=== PATIENT | male | born 1970 | race Caucasian/White ===

== ENCOUNTER 2017-07-25 13:26 | Inpatient (IN) ==
[2017-07-25] MEDS ORDERED: hydrALAZINE 20 MG/1 ML VIAL IV STA (15:05)
--- NOTE | 2017-07-25 15:07 | Emergency Department Note ---
Tomas Espinal Manpreet, am scribing for, and in the presence of, Jayy Galo MD 14:49. Iraj Espinal Charles R, MD, personally performed the services described in this documentation, ascribed by Garett Marin in my presence, and it is both accurate and complete 507 . 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 Denies CP or SOB. EMS reports patient was confused upon their arrival, but is AOX4 now. 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 Pt denies any CP or SOB and was confused upon EMS arrival but is currently back to his baseline state. Pt states he felt "woozy" before the syncopal episode and does not recall much. Pt states his HTN is usually lower than the observed on the monitor in the room. Pt also states he has not taken his HTN medications, lisinopril, in weeks. Pt is originally from [place] and has been working in the area thus unable to get a refill for his medications. Pt denies any CP, DIETZ, SOB, fever, or chills. Pt reports of smoking cigarettes and drinks EtOH intermittently. No other pains/ complaints reported to the ED. 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) Consistency: constant Severity: mild, moderate Severity scale (1-10): 2 Allergies/Adverse Reactions: Allergies Allergy/AdvReac Type Severity Reaction Status Date / Time Penicillins Allergy Unknown/Unable Verified 07/25/17 13:37 to obtain Home Medications: Home Medications Medication Instructions Recorded Confirmed Type Lisinopril/Hydrochlorothiazide 2 each PO DAILY 07/25/17 07/25/17 History [Lisinopril-Hctz 20-12.5 mg Tab] Review of System - Review of System 12 point system: reviewed and no additional remarkable complaints except as stated - Review of System Constitutional: Absent: chills, diaphoresis, fever Respiratory: Absent: cough, respiratory distress Cardiovascular: Present: syncope. Absent: chest pain Gastrointestinal: Absent: abdominal pain, nausea, vomiting, diarrhea Genitourinary male: Absent: dysuria Musculoskeletal: Absent: back pain Neurological: Absent: headache, weakness, numbness, paresthesias Medical,Surgical,& Family Hx - Medical History Cardio: History of: Hypertension - Social History Smoking Status: Current every day smoker Frequency of Alcohol Use: Frequently Type of Drug Use: None Exam Vital Signs: Vital Signs Temperature 98.8 F 07/25/17 13:33 Pulse Rate 104 H 07/25/17 13:33 Respiratory Rate 16 07/25/17 13:33 Blood Pressure 169/110 07/25/17 13:33 O2 Sat by Pulse Oximetry 98 07/25/17 13:33 - General General appearance: alert, in no apparent distress - Head Head exam: Present: atraumatic, normocephalic, normal inspection - Eye Eye exam: Present: normal appearance, PERRL, EOMI - ENT ENT exam: Present: normal exam, normal oropharynx, mucous membranes moist, TM's normal bilaterally - Neck Neck exam: Present: normal inspection, full ROM, trachea midline. Absent: tenderness - Chest Chest inspection: Present: normal inspection, symmetric chest wall rise. Absent : tenderness - Respiratory Respiratory exam: Present: normal lung sounds bilaterally. Absent: respiratory distress - Cardiovascular Cardiovascular exam: Present: regular rate, normal rhythm, normal heart sounds. Absent: murmur, rubs, gallop - Abdominal Exam Abdominal exam: Present: soft, normal bowel sounds. Absent: distention, tenderness - Extremities Exam Extremities exam: Present: normal inspection, full ROM - Back Exam Back exam: Present: normal inspection, full ROM - Neurological Exam Neurological exam: Present: alert, oriented X3, CN II-XII intact, reflexes normal - Psychiatric Psychiatric exam: Present: normal affect, normal mood - Skin Skin exam: Present: warm, dry, intact, normal color. Absent: pallor Course - Consultations Consultation #1: Hospitalist will admit patient Time: 16:48 Results - Labs CBC & BMP: 07/25/17 15:38 07/25/17 15:38 Lab Results: I have reviewed the patients labs Labs: Laboratory Tests 07/25/17 15:38 WBC 12.4 H RBC 4.80 Hgb 15.7 Hct 44.6 MCV 92.9 MCH 33 MCHC 35.2 RDW 12.4 Plt Count 219 MPV 10.5 Neut % (Auto) 83.1 H Lymph % (Auto) 11.3 L [place] % (Auto) 4.2 Eos % (Auto) 0.4 Baso % (Auto) 0.5 Neut # (Auto) 10.3 H Lymph # (Auto) 1.4 [place] # (Auto) 0.5 Eos # (Auto) 0.1 Baso # (Auto) 0.1 Immature Gran % 0.5 Nucleated RBC % 0.0 Immature Gran # 0.06 Nucleated RBCs # 0.00 Immature Plt Fraction 0.0 Laboratory Tests 07/25/17 15:38 D-Dimer, Quantitative <= 0.5 Laboratory Tests 07/25/17 16:09 Urine Color Yellow Urine Appearance Clear Urine pH 5.0 Ur Specific [place] 1.009 Urine Protein 30 Urine Glucose (UA) Negative Urine Ketones 5 Urine Blood Small Urine Nitrate Negative Urine Bilirubin Negative Urine Urobilinogen < 2.0 H Urine Leukocytes Negative Urine RBC 2 Ur Squamous Epith Cells Occasional Hyaline Casts 1 Urine Mucus Occasional Ur Culture Indicated? Not indicated Laboratory Tests 07/25/17 15:38 Sodium 139 Potassium 3.6 Chloride 107 Carbon Dioxide 26 Anion Gap 9.6 BUN 8 Creatinine 0.90 GFR Calculation 112 BUN/Creatinine Ratio 8.00 Glucose 79 Calculated Osmolality 273.5 Calcium 8.6 Magnesium 2.1 Total Bilirubin < 0.39 AST 30 ALT 36 Alkaline Phosphatase 79 Troponin I 0.020 Total Protein 7.5 Albumin 3.6 Globulin 3.9 H Albumin/Globulin Ratio 0.9 L Serum Alcohol < 15 L Laboratory Tests 07/25/17 16:09 Urine Opiates Screen Negative Ur Barbiturates Screen Negative Ur Phencyclidine Scrn Negative U Amphetamine/Methamph Negative U Benzodiazepines Scrn Negative U Cocaine Metab Screen Negative U Cannabinoids Screen Negative - Diagnostic Findings Procedure: Chest x-ray: report reviewed by me ("CXR: No abnormality is seen."), CT: report reviewed by me ("CT Head/brain w/o con: No acute intracranial abnormality is seen. Paranasal sinus disease.") Critical Care Time Critical Care Time: Yes Total Critical Care Time: 60 Disposition Clinical Impression: Syncope and collapse, Malignant hypertension, Tobacco abuse Case discussed with: patient Disposition: Still a Patient Condition: Guarded Time of Disposition: 16:49
--- NOTE | 2017-07-25 15:28 | CT Report ---
CT of the head without contrast. Indication: Syncope. The ventricles are normal in size and configuration. There is no mass effect, midline shift, or area of hemorrhage. No ischemic lesions are seen. The calvarium is intact. There is mucosal thickening present within the ethmoid sinuses. Impression: No acute intracranial abnormality is seen. Paranasal sinus disease. The CT exam was performed using one or more of the following dose reduction techniques: Automated exposure control, adjustment of the mA and/or kV according to patient size, or use of iterative reconstruction technique. PROCEDURE INTERPRETED AT [facility] DEPARTMENT OF RADIOLOGY Final Report Signed by: Dr. Jessica Rm
[2017-07-25] MEDS ORDERED: hydrALAZINE 20 MG/1 ML VIAL ONE ×2 (15:34→16:19)
--- NOTE | 2017-07-25 15:34 | XRay Report ---
Single view the chest. Indication: Shortness of breath. The heart and mediastinal contours are unremarkable. The pulmonary vasculature is normal. There is no consolidation, pneumothorax, or pleural effusion. The osseous structures are unremarkable. Impression: No abnormality is seen. PROCEDURE INTERPRETED AT [facility] DEPARTMENT OF RADIOLOGY Final Report Signed by: Dr. Jessica Rm
--- NOTE | 2017-07-25 15:45 | Order Completion Report ---
See report scanned to EMR
[2017-07-25 15:56] LABS: Basophils # 0.1 10*3/uL (0.0-0.2); Basophils % 0.5 % (0.0-0.8); Eosinophils # 0.1 10*3/uL (0.0-0.87); Eosinophils % 0.4 % (0.00-10.9); Hematocrit 44.6 VOL% (42.0-52.0); Hemoglobin 15.7 GM/DL (14.0-18.0); Immature Granulocytes % 0.5 %; Immature Granulocytes Absolute 0.06 #; Lymphocytes # 1.4 10*3/uL (1.4-4.0); Lymphocytes % 11.3 % (21.2-54.2); Mean Corpuscular HGB Conc 35.2 GM/DL (32-36); Mean Corpuscular Hemoglobin 33 PG (27-34); Mean Corpuscular Volume 92.9 FL (87-102); Mean Platelet Volume 10.5 FL (9.6-12.0); Monocytes # 0.5 10*3/uL (0.11-0.8); Monocytes % 4.2 % (1.7-12.7); Neutrophils # 10.3 10*3/uL (1.4-7.4); Neutrophils % 83.1 % (38.7-73.9); Platelet Count 219 T/CUMM (130-400); Red Cell Distribution Width 12.4 % (9.3-17.3); White Blood Count 12.4 T/CUMM (4-12)
[2017-07-25 16:23] LABS: Apearance,Urine CLEAR (Clear); Bilirubin,Urine Negative (Negative); Blood, Urine Small mg/dL (Negative); Glucose,Urine (UA) Negative (Negative); Hyaline Casts,Urine 1 /LPF (0-3); Ketones,Urine 5 mg/dL (Negative); Mucus,Urine Occasional /LPF (Occasional); Nitrite,Urine Negative (Negative); Protein,Urine 30 MG/DL; RBC,Urine 2 /HPF (0-4); Squamous Epithelial Cell,Urine Occasional /HPF (0-10); Urine Color Yellow (Yellow); Urine Specific Gravity 1.009 (1.001-1.035); Urine Urobilinogen < 2.0 EU/DL (0.2-1.0)
[2017-07-25 16:28] LABS: Alanine Aminotransferase 36 U/L (16-61); Albumin 3.6 G/DL (3.4-5.0); Alkaline Phosphatase 79 U/L (45-117); Aspartate Amino Transferase 30 U/L (0-37); Bilirubin,Total < 0.39 MG/DL (0.2-1.0); Blood Urea Nitrogen 8 MG/DL (7-18); Calcium 8.6 MG/DL (8.5-10.1); Glucose 79 MG/DL (74-106); Magnesium 2.1 MG/DL (1.8-2.4); Osmolality,Calculated 273.5 MOS/KG (273-304); Potassium 3.6 MMOL/L (3.5-5.1); Sodium 139 MMOL/L (136-145); Total Protein 7.5 G/DL (6.4-8.3)
[2017-07-25 16:33] LABS: Barbiturates Screen,Urine Negative (Negative); Benzodiazepines Screen,Urine Negative (Negative); Cannabinoid Screen,Urine Negative (Negative); Opiate Screen,Urine Negative (Negative); Phencyclidine Screen,Urine Negative (Negative)
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
[2017-07-25] MEDS ORDERED: ACETAMINOPHEN 325 MG TABLET PO PRN (18:11)
[2017-07-25] MEDS ORDERED: ONDANSETRON 4 MG/2 ML VIAL IV PRN (18:11)
[2017-07-25] MEDS ORDERED: hydrALAZINE 20 MG/1 ML VIAL IV PRN (18:30)
[2017-07-25] MEDS: SODIUM CHLORIDE 0.9% 1,000 ML IV SCH (20:56)
[2017-07-25] MEDS: ENOXAPARIN 40 MG/0.4 ML SYRINGE SUBCUT SCH (20:56)
[2017-07-26] MEDS: SODIUM CHLORIDE 0.9% 1,000 ML IV SCH ×4 (02:43→17:46)
[2017-07-26 05:35] LABS: Basophils # 0.1 10*3/uL (0.0-0.2); Basophils % 1.1 % (0.0-0.8); Eosinophils # 0.2 10*3/uL (0.0-0.87); Eosinophils % 2.6 % (0.00-10.9); Hematocrit 44.8 VOL% (42.0-52.0); Hemoglobin 15.6 GM/DL (14.0-18.0); Immature Granulocytes % 0.5 %; Immature Granulocytes Absolute 0.04 #; Lymphocytes # 1.7 10*3/uL (1.4-4.0); Lymphocytes % 20.6 % (21.2-54.2); Mean Corpuscular HGB Conc 34.8 GM/DL (32-36); Mean Corpuscular Hemoglobin 33 PG (27-34); Mean Corpuscular Volume 93.3 FL (87-102); Mean Platelet Volume 10.9 FL (9.6-12.0); Monocytes # 0.6 10*3/uL (0.11-0.8); Monocytes % 7.2 % (1.7-12.7); Neutrophils # 5.5 10*3/uL (1.4-7.4); Platelet Count 230 T/CUMM (130-400); Red Cell Distribution Width 12.5 % (9.3-17.3); White Blood Count 8.1 T/CUMM (4-12)
[2017-07-26 06:22] LABS: Calcium 8.5 MG/DL (8.5-10.1); Magnesium 2.2 MG/DL (1.8-2.4); Potassium 3.5 MMOL/L (3.5-5.1); Risk Ratio 2.9; Thyroid Stimulating Hormone 1.49 uIU/ml (0.358-3.74); VLDL CHOLESTEROL 14.2 MG/DL
[2017-07-26] MEDS: LISINOPRIL/HCTZ 20-12.5 MG TABLET PO SCH (08:42)
[2017-07-26] MEDS: PANTOPRAZOLE 40 MG TABLET PO SCH (08:43)
[2017-07-26 09:17] LABS: CKMB % 0.9 %
[2017-07-26 09:22] LABS: Troponin I Only 0.099 NG/ML (0.00-0.045)
[2017-07-26] MEDS ORDERED: amLODIPine 5 MG TABLET PO SCH (10:00)
--- NOTE | 2017-07-26 10:30 | Hospitalist Progress Note ---
Assessment and Plan (1) Hypertension Status: Acute Assessment and plan: His blood pressure today is 165/116. He was restarted yesterday on lisinopril 40 mg p.o. daily and hydrochlorothiazide 12.5 mg p.o. daily. I have begun him on amlodipine 5 mg p.o. daily today. Current Visit: Yes Qualifiers: Hypertension type: essential hypertension Qualified Code(s): I10 - Essential (primary) hypertension (2) Elevated troponin Status: Acute Assessment and plan: He has no known history of coronary artery disease. He has not experienced chest pain. In addition to his elevated troponin, his CPK and B is elevated to 16.5 and CPK to 1865. Cardiology has been consulted. Current Visit: Yes (3) Syncope and collapse Status: Acute Assessment and plan: He has no previously known history of loss of consciousness. As noted above, his troponin and CPK MB are elevated suggestive of acute coronary syndrome. Current Visit: Yes Hospitalist: Subjective Interval history: Mr. Tyler was admitted to the hospital last night after having experienced an episode of loss of consciousness. He experienced no chest pain, shortness of breath, or palpitations. He has a previously known history of hypertension but had not taken any medications for at least one month because he had been traveling and unable to renew his prescriptions. He has done well since admission to the hospital he has been restarted on antihypertensive medications. Cardiology has been consulted. Laboratory testing has demonstrated elevation of his serum troponins to 0.098, 0.135, and 0.099. Exam - Constitutional Vitals: Period Temp Pulse Resp BP Sys/Lynch Pulse Ox Last 24 Hr 97.3 F-99 F 75-107 16-20 152-189/92-116 96-100 General appearance: no acute distress - Head Head exam: Present: normal inspection - Neck Neck exam: Present: normal inspection - Respiratory Respiratory exam: Present: clear to auscultation bilaterally - Cardiovascular Cardiovascular exam: Present: regular rate and rhythm - GI/Abdominal GI/Abdominal exam: Present: normal bowel sounds, soft - Extremities Exam Extremities exam: Present: normal inspection - Skin Skin exam: Present: normal color, warm, intact Results - Labs CBC & BMP: 07/26/17 04:18 07/26/17 04:18
--- NOTE | 2017-07-26 10:45 | Cardiology Consult Note ---
<Chaya Gallegos E - Last Filed: 07/26/17 10:48> Assessment and Plan - Time spent with patient Time spent with patient: Greater than 30 minutes (Due to assessment, plan, documentation, and medication review.) (1) Syncope and collapse Status: Acute Assessment and plan: See plan of care listed below. Current Visit: Yes (2) Hypertension Status: Chronic Assessment and plan: See plan of care listed below. Current Visit: Yes Qualifiers: Hypertension type: essential hypertension Qualified Code(s): I10 - Essential (primary) hypertension (3) Tobacco abuse Status: Chronic Assessment and plan: See plan of care listed below. Current Visit: Yes (4) Noncompliance Status: Chronic Assessment and plan: See plan of care listed below. 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 Lyons PCP: none, patient is traveling [place] Mr. Tyler is a 47 y/o WM who has risk factors significant for: hypertension, tobacco abuse, overweight. He smokes approximately 10 cigarettes daily and has been smoking for many years. He drinks 6-7 16-ounce cans of beer several times per week and has an occasional glass of bourbon. 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 He states his last PCP was in [place] but he has not been there in 6-7 years. 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 He is currently based out of [place] but is staying with friends here at the interim. Mr. Tyler was brought to the emergency room via EMS yesterday evening after a syncopal episode. He tells me that he was helping the elderly female he and friends are staying with clean out her garage when after several hours he began to "feel funny." He thought that he needed to eat something and went inside. He was heating food up in the microwave and had fixed himself a glass of tea when he reports feeling shaky and queasy. He states the next thing he remembers is embroidery worker helping him up off of the floor. He denies loss of bowel or bladder function but does report discovering that his tongue on both sides upon arrival to the hospital. He is unsure exactly how long he was unconscious. His blood pressures on arrival were 169/100 and 189/98. He states he has been out of his blood pressure medication for over 30 days. He tells me that he is usually able to tell when his blood pressure is elevated as his face starts feeling "tight." He reports having that feeling 2-3 times during the last month. The last time he checked his blood pressure it was 113/91. He denies resting or exertional chest pain, heaviness, or tightness but states that he does have some dyspnea on exertion after climbing approximately 530 steel steps for work. Upon arrival, his CT of the head was unremarkable. HIs potassium is 3.5, magnesium 2.2, H&H 15.6 and 44.8. Sodium 143. Creatinine 0.9 with GFR 114. Troponin initially 0.020 with repeats 0.098, 0.135, and 0.099. CKMB 16.5 with CPK 1865. Lipid profile reveals triglycerides 71, cholesterol 197, LDL 121, and HDL 68. EKG shows sinus rhythm with LAD, late transition, and ST-T abnormality. IMPRESSION/PLAN: - SYNCOPE AND COLLAPSE: Echocardiogram and carotid dopplers are pending. Prolactin level is normal but CPK is 1865. Low suspicion for cardiac dysrhythmia but may require further evaluation with nuclear stress testing. Will further discuss with Dr. Lyons and await additional recommendations. - HYPERTENSION: Continue home medications. Will monitor and adjust accordingly. - TOBACCO ABUSE: Chronic. Patient not motivated to quit. Greater than 5 minutes was spent discussing the need for tobacco cessation. - NONCOMPLIANCE: Patient reports he gets his medicines filled wherever he can whenever he can. He has no PCP and has been out of his BP meds >30 days. CC: Jose Walters - Home Medications and Allergies Home Medications: Home Medications Medication Instructions Recorded Confirmed Type Lisinopril/Hydrochlorothiazide 2 each PO DAILY 07/25/17 07/25/17 History [Lisinopril-Hctz 20-12.5 mg Tab] Allergies/Adverse Reactions: Allergies Allergy/AdvReac Type Severity Reaction Status Date / Time Penicillins Allergy Unknown/Unable Verified 07/25/17 13:37 to obtain Review of systems: - Constitutional: Present: As per HPI. Absent: anorexia, chills, daytime sleepiness, excessive sweating, fever(s), frequent falls, headache(s), increased appetite, lethargy, malaise, night sweats, stops breathing during sleep, weakness, weight gain, weight loss, fatigue. - EENT Eyes: Present: As per HPI. Absent: blurry vision, diplopia, loss of vision Ears: Present: As per HPI. Absent: decreased hearing, ear discharge, ear pain Nose, mouth and throat: Present: As per HPI. Absent: dysphagia, epistaxis, headache(s), hoarseness, lip swelling, nasal congestion, neck mass, neck pain, sinus pressure, sore throat, throat swelling, tongue swelling, vertigo - Cardiovascular: Present: lightheadedness, as per HPI. Absent: chest pain at rest, chest pain with activity, dyspnea, edema, claudication, diaphoresis, radiating jaw, neck or arm pain, orthopnea, palpitations, PND - Respiratory: Present: cough, as per HPI. Absent: dyspnea, hemoptysis, wheezing, snoring, pain on inspiration - Gastrointestinal: Present: nausea, As per HPI. Absent: abdominal pain, bloating, change in bowel habits, constipation, diarrhea, heartburn, hematemesis , hematochezia, loose stools, melena, vomiting - Genitourinary: Present: As per HPI. Absent: difficulty urinating, dysuria, flank pain, hematuria, nocturia, urinary frequency, urinary incontinence - Musculoskeletal: Present: As per HPI. Absent: arthralgias, back pain, joint swelling, limited range of motion, muscle cramps, muscle weakness, myalgias - Neurological: Present: syncope, As per HPI. Absent: abnormal gait, abnormal speech, behavioral changes, confusion, convulsions, disequilibrium, dizziness, focal weakness, frequent falls, headache(s), memory loss, numbness, paresthesias , radicular pain, tremor(s) - Psychiatric: Present: As per HPI. Absent: anxiety, confusion, depression, panic attacks - Endocrine: Present: As per HPI. Absent: cold intolerance, fatigue, heat intolerance, polydipsia, polyphagia - Hematologic/Lymphatic: Present: As per HPI. Absent: easy bleeding, easy bruising, lymphadenopathy Medical,Surgical,& Family Hx - Medical History Cardio: History of: Hypertension Psychological: History of: Anxiety Disorders, Behavior Problems Musculoskeletal: History of: Herniated Disk No history of: Amputation - Surgical History Cardiac Surgeries: Patient Denies: Cardiac Catheterization Thoracic Surgeries: Patient denies;: Lobectomy Neurologic Surgeries: Patient denies: Neurologic Surgery HEENT Surgeries: Patient denies: Tonsilectomy & Adenoidectomy - Social History Smoking Status: Current every day smoker Frequency of Alcohol Use: Frequently Type of Drug Use: None Marital Status: Single Lives With:: Alone Functional capacity: independent ambulation Physical Examination Vital Signs Temp Pulse Resp BP Pulse Ox 98.8 F 104 H 16 169/110 98 07/25/17 13:33 07/25/17 13:33 07/25/17 13:33 07/25/17 13:33 07/25/17 13:33 Exam: General appearance: Appears older than stated age, slightly disheveled. Pleasant and cooperative. Overweight, no acute distress. Head exam: Present: normal inspection, normocephalic, atraumatic. Absent: hematoma, laceration Eye exam: Present: EOMI. Absent: conjunctival injection, nystagmus, periorbital swelling, scleral icterus, laceration to eyelids, jaundice Pupils: Present: PERRL. Absent: constricted, dilated, fixed, irregular, unequal ENT exam: Present: normal exam, normal external ear exam, mucous membranes moist. Neck exam: Present: normal inspection, midline trachea. Absent: masses, lymphadenopathy, tenderness, thyromegaly, carotid bruit Respiratory exam: Present: clear to auscultation bilaterally. Absent: accessory muscle use, chest wall tenderness, rales, rhonchi, wheezing. Cardiovascular exam: Present: regular rate and rhythm. Absent: gallop, JVD, rubs, murmur GI/Abdominal exam: Present: normal bowel sounds, soft. Absent: distended, firm , hernia, mass, tenderness. Extremities exam: Present: Normal Gait, No Clubbing, No Cyanosis, Upper Extr. Pulses 2+, Lower Extr. Pulses 2+, No edema. Capillary refill less than 3 seconds. Musculoskeletal: Present: No Fluid Collection, No Pain, Normal Range of Motion Back exam: Present: normal inspection. Absent: muscle spasm, vertebral tenderness Neurological exam: Present: awake, alert, oriented X3, Moves all extremities well without hemiparesis or paralysis. Grossly intact without resting or essential tremor Psychiatric exam: Present: normal affect, normal mood Skin exam: Present: normal color, warm, dry, intact. Absent: cyanosis, diaphoretic, urticaria Result/EKG - Labs CBC & BMP: 07/26/17 04:18 07/26/17 04:18 Lab Results: I have reviewed the past 24 hour labs Labs: Laboratory Results - last 24 hr 07/25/17 07/25/17 07/25/17 15:38 15:38 15:38 WBC 12.4 H RBC 4.80 Hgb 15.7 Hct 44.6 MCV 92.9 MCH 33 MCHC 35.2 RDW 12.4 Plt Count 219 MPV 10.5 Neut % (Auto) 83.1 H Lymph % (Auto) 11.3 L [place] % (Auto) 4.2 Eos % (Auto) 0.4 Baso % (Auto) 0.5 Neut # (Auto) 10.3 H Lymph # (Auto) 1.4 [place] # (Auto) 0.5 Eos # (Auto) 0.1 Baso # (Auto) 0.1 Immature Gran % 0.5 Nucleated RBC % 0.0 Immature Gran # 0.06 Nucleated RBCs # 0.00 Immature Plt Fraction 0.0 D-Dimer, Quantitative <= 0.5 Sodium 139 Potassium 3.6 Chloride 107 Carbon Dioxide 26 Anion Gap 9.6 BUN 8 Creatinine 0.90 GFR Calculation 112 BUN/Creatinine Ratio 8.00 Glucose 79 Calculated Osmolality 273.5 Calcium 8.6 Magnesium 2.1 Total Bilirubin < 0.39 AST 30 ALT 36 Alkaline Phosphatase 79 Total Creatine Kinase CK-MB (CK-2) CK and CKMB Interp Troponin I 0.020 B-Natriuretic Peptide Total Protein 7.5 Albumin 3.6 Globulin 3.9 H Albumin/Globulin Ratio 0.9 L Triglycerides Cholesterol LDL Cholesterol VLDL Cholesterol HDL Cholesterol Heart Disease Risk Ratio Free T4 TSH 3rd Generation Urine Color Urine Appearance Urine pH Ur Specific [place] Urine Protein Urine Glucose (UA) Urine Ketones Urine Blood Urine Nitrate Urine Bilirubin Urine Urobilinogen Urine Leukocytes Urine RBC Ur Squamous Epith Cells Hyaline Casts Urine Mucus Ur Culture Indicated? Urine Opiates Screen Ur Barbiturates Screen Ur Phencyclidine Scrn U Amphetamine/Methamph U Benzodiazepines Scrn U Cocaine Metab Screen U Cannabinoids Screen Serum Alcohol < 15 L 07/25/17 07/25/17 07/25/17 15:38 16:09 16:09 WBC RBC Hgb Hct MCV MCH MCHC RDW Plt Count MPV Neut % (Auto) Lymph % (Auto) [place] % (Auto) Eos % (Auto) Baso % (Auto) Neut # (Auto) Lymph # (Auto) [place] # (Auto) Eos # (Auto) Baso # (Auto) Immature Gran % Nucleated RBC % Immature Gran # Nucleated RBCs # Immature Plt Fraction D-Dimer, Quantitative Sodium Potassium Chloride Carbon Dioxide Anion Gap BUN Creatinine GFR Calculation BUN/Creatinine Ratio Glucose Calculated Osmolality Calcium Magnesium Total Bilirubin AST ALT Alkaline Phosphatase Total Creatine Kinase CK-MB (CK-2) CK and CKMB Interp Troponin I B-Natriuretic Peptide 66 Total Protein Albumin Globulin Albumin/Globulin Ratio Triglycerides Cholesterol LDL Cholesterol VLDL Cholesterol HDL Cholesterol Heart Disease Risk Ratio Free T4 TSH 3rd Generation Urine Color Yellow Urine Appearance Clear Urine pH 5.0 Ur Specific [place] 1.009 Urine Protein 30 Urine Glucose (UA) Negative Urine Ketones 5 Urine Blood Small Urine Nitrate Negative Urine Bilirubin Negative Urine Urobilinogen < 2.0 H Urine Leukocytes Negative Urine RBC 2 Ur Squamous Epith Cells Occasional Hyaline Casts 1 Urine Mucus Occasional Ur Culture Indicated? Not indicated Urine Opiates Screen Negative Ur Barbiturates Screen Negative Ur Phencyclidine Scrn Negative U Amphetamine/Methamph Negative U Benzodiazepines Scrn Negative U Cocaine Metab Screen Negative U Cannabinoids Screen Negative Serum Alcohol 07/25/17 07/26/17 07/26/17 20:57 04:18 04:18 WBC RBC Hgb Hct MCV MCH MCHC RDW Plt Count MPV Neut % (Auto) Lymph % (Auto) [place] % (Auto) Eos % (Auto) Baso % (Auto) Neut # (Auto) Lymph # (Auto) [place] # (Auto) Eos # (Auto) Baso # (Auto) Immature Gran % Nucleated RBC % Immature Gran # Nucleated RBCs # Immature Plt Fraction D-Dimer, Quantitative Sodium Potassium Chloride Carbon Dioxide Anion Gap BUN Creatinine GFR Calculation BUN/Creatinine Ratio Glucose Calculated Osmolality Calcium Magnesium Total Bilirubin AST ALT Alkaline Phosphatase Total Creatine Kinase CK-MB (CK-2) CK and CKMB Interp Troponin I 0.098 H D 0.135 H D B-Natriuretic Peptide Total Protein Albumin Globulin Albumin/Globulin Ratio Triglycerides Cholesterol LDL Cholesterol VLDL Cholesterol HDL Cholesterol Heart Disease Risk Ratio Free T4 0.99 TSH 3rd Generation Urine Color Urine Appearance Urine pH Ur Specific [place] Urine Protein Urine Glucose (UA) Urine Ketones Urine Blood Urine Nitrate Urine Bilirubin Urine Urobilinogen Urine Leukocytes Urine RBC Ur Squamous Epith Cells Hyaline Casts Urine Mucus Ur Culture Indicated? Urine Opiates Screen Ur Barbiturates Screen Ur Phencyclidine Scrn U Amphetamine/Methamph U Benzodiazepines Scrn U Cocaine Metab Screen U Cannabinoids Screen Serum Alcohol 07/26/17 07/26/17 07/26/17 04:18 04:18 04:18 WBC 8.1 D RBC 4.80 Hgb 15.6 Hct 44.8 MCV 93.3 MCH 33 MCHC 34.8 RDW 12.5 Plt Count 230 MPV 10.9 Neut % (Auto) 68.0 Lymph % (Auto) 20.6 L [place] % (Auto) 7.2 Eos % (Auto) 2.6 Baso % (Auto) 1.1 H Neut # (Auto) 5.5 Lymph # (Auto) 1.7 [place] # (Auto) 0.6 Eos # (Auto) 0.2 Baso # (Auto) 0.1 Immature Gran % 0.5 Nucleated RBC % 0.0 Immature Gran # 0.04 Nucleated RBCs # 0.00 Immature Plt Fraction 0.0 D-Dimer, Quantitative Sodium 143 Potassium 3.5 Chloride 108 H Carbon Dioxide 27 Anion Gap 11.5 BUN 8 Creatinine 0.90 GFR Calculation 114 BUN/Creatinine Ratio 8.00 Glucose 76 Calculated Osmolality 281.0 Calcium 8.5 Magnesium 2.2 Total Bilirubin AST ALT Alkaline Phosphatase Total Creatine Kinase CK-MB (CK-2) CK and CKMB Interp Troponin I B-Natriuretic Peptide 123 H Total Protein Albumin Globulin Albumin/Globulin Ratio Triglycerides 71 Cholesterol 197 LDL Cholesterol 121.0 VLDL Cholesterol 14.2 HDL Cholesterol 68 H Heart Disease Risk Ratio 2.90 Free T4 TSH 3rd Generation 1.490 Urine Color Urine Appearance Urine pH Ur Specific [place] Urine Protein Urine Glucose (UA) Urine Ketones Urine Blood Urine Nitrate Urine Bilirubin Urine Urobilinogen Urine Leukocytes Urine RBC Ur Squamous Epith Cells Hyaline Casts Urine Mucus Ur Culture Indicated? Urine Opiates Screen Ur Barbiturates Screen Ur Phencyclidine Scrn U Amphetamine/Methamph U Benzodiazepines Scrn U Cocaine Metab Screen U Cannabinoids Screen Serum Alcohol 07/26/17 07/26/17 08:25 09:23 WBC RBC Hgb Hct MCV MCH MCHC RDW Plt Count MPV Neut % (Auto) Lymph % (Auto) [place] % (Auto) Eos % (Auto) Baso % (Auto) Neut # (Auto) Lymph # (Auto) [place] # (Auto) Eos # (Auto) Baso # (Auto) Immature Gran % Nucleated RBC % Immature Gran # Nucleated RBCs # Immature Plt Fraction D-Dimer, Quantitative Sodium Potassium Chloride Carbon Dioxide Anion Gap BUN Creatinine GFR Calculation BUN/Creatinine Ratio Glucose Calculated Osmolality Calcium Magnesium Total Bilirubin AST ALT Alkaline Phosphatase Total Creatine Kinase 1865 H CK-MB (CK-2) 16.5 H CK and CKMB Interp 0.9 Troponin I 0.099 H D 0.087 H B-Natriuretic Peptide Total Protein Albumin Globulin Albumin/Globulin Ratio Triglycerides Cholesterol LDL Cholesterol VLDL Cholesterol HDL Cholesterol Heart Disease Risk Ratio Free T4 TSH 3rd Generation Urine Color Urine Appearance Urine pH Ur Specific [place] Urine Protein Urine Glucose (UA) Urine Ketones Urine Blood Urine Nitrate Urine Bilirubin Urine Urobilinogen Urine Leukocytes Urine RBC Ur Squamous Epith Cells Hyaline Casts Urine Mucus Ur Culture Indicated? Urine Opiates Screen Ur Barbiturates Screen Ur Phencyclidine Scrn U Amphetamine/Methamph U Benzodiazepines Scrn U Cocaine Metab Screen U Cannabinoids Screen Serum Alcohol - EKG EKG results: interpreted by me, sinus rhythm <Gunner Lyons - Last Filed: 07/26/17 14:12> History of Present Illness - Consult Narrative History of present illness: Cardiology addendum Patient seen chart reviewed discussed with nurse Chaya Gallegos NP. Patient admitted with syncopal episode and hypertensive urgency. Blood pressure 170/110 at admission. EKG shows sinus rhythm with late transition and ST-T wave changes. Chest x-ray shows a normal heart size with no infiltrate or effusion. Trivial troponin 0 0.098, 0.135, 0.099 which remained flat. Patient has no chest pain. There is no history of exertional angina. He does have chronic hypertension and ran out of medications over 1 month ago. The patient lives in [place], [place]. He was working at the [employer] but got laid off 2 weeks ago. He is waiting for his friends to finish their contract and return to [place] in 2 weeks. No history of stroke. He has had drug rehab for cocaine twice. Denies any recent cocaine ingestion. CT the head was negative. No history of diabetes. 5 feet 185 He smokes one half pack of cigarettes a day smoking is a 21. He consumes 6-8 16 ounce beers at least 4 5 times per week. No history of DVTs. No history of pancreatitis. He denies melena or hematemesis. BNP level 123. To date telemetry shows steady sinus rhythm. Blood pressure is currently 166/100 and the right arm by me. Poor oral hygiene. Strong nicotine breath. No carotid bruit. Neck veins are flat. No murmur or gallop. Rhythm is regular. Distal pulses 2+ no leg edema. Impression Hypertensive urgency due to noncompliance with medication. Syncope. No seizure activity. Trivial troponin elevation in the face of hypertensive urgency No history of chest pain palpitations prior syncope or heart failure. Long-time tobacco abuse. EtOH abuse. Poor oral hygiene. History of polysubstance abuse with rehab 2 5 feet 7 inches tall 185 pounds Plan Echo to evaluate wall motion and EF Optimize BP meds 20 mg IV labetalol now increase Norvasc 10 mg daily Carotid duplex pending CC: Jsoe Walters Physical Examination Vital Signs Temp Pulse Resp BP Pulse Ox 98.8 F 104 H 16 169/110 98 07/25/17 13:33 07/25/17 13:33 07/25/17 13:33 07/25/17 13:33 07/25/17 13:33 Result/EKG - Labs CBC & BMP: 07/26/17 04:18 07/26/17 04:18 Labs: Laboratory Results - last 24 hr 07/25/17 07/25/17 07/25/17 15:38 15:38 15:38 WBC 12.4 H RBC 4.80 Hgb 15.7 Hct 44.6 MCV 92.9 MCH 33 MCHC 35.2 RDW 12.4 Plt Count 219 MPV 10.5 Neut % (Auto) 83.1 H Lymph % (Auto) 11.3 L [place] % (Auto) 4.2 Eos % (Auto) 0.4 Baso % (Auto) 0.5 Neut # (Auto) 10.3 H Lymph # (Auto) 1.4 [place] # (Auto) 0.5 Eos # (Auto) 0.1 Baso # (Auto) 0.1 Immature Gran % 0.5 Nucleated RBC % 0.0 Immature Gran # 0.06 Nucleated RBCs # 0.00 Immature Plt Fraction 0.0 D-Dimer, Quantitative <= 0.5 Sodium 139 Potassium 3.6 Chloride 107 Carbon Dioxide 26 Anion Gap 9.6 BUN 8 Creatinine 0.90 GFR Calculation 112 BUN/Creatinine Ratio 8.00 Glucose 79 Calculated Osmolality 273.5 Calcium 8.6 Magnesium 2.1 Total Bilirubin < 0.39 AST 30 ALT 36 Alkaline Phosphatase 79 Total Creatine Kinase CK-MB (CK-2) CK and CKMB Interp Troponin I 0.020 B-Natriuretic Peptide Total Protein 7.5 Albumin 3.6 Globulin 3.9 H Albumin/Globulin Ratio 0.9 L Triglycerides Cholesterol LDL Cholesterol VLDL Cholesterol HDL Cholesterol Heart Disease Risk Ratio Free T4 TSH 3rd Generation Prolactin Urine Color Urine Appearance Urine pH Ur Specific [place] Urine Protein Urine Glucose (UA) Urine Ketones Urine Blood Urine Nitrate Urine Bilirubin Urine Urobilinogen Urine Leukocytes Urine RBC Ur Squamous Epith Cells Hyaline Casts Urine Mucus Ur Culture Indicated? Urine Opiates Screen Ur Barbiturates Screen Ur Phencyclidine Scrn U Amphetamine/Methamph U Benzodiazepines Scrn U Cocaine Metab Screen U Cannabinoids Screen Serum Alcohol < 15 L 07/25/17 07/25/17 07/25/17 15:38 16:09 16:09 WBC RBC Hgb Hct MCV MCH MCHC RDW Plt Count MPV Neut % (Auto) Lymph % (Auto) [place] % (Auto) Eos % (Auto) Baso % (Auto) Neut # (Auto) Lymph # (Auto) [place] # (Auto) Eos # (Auto) Baso # (Auto) Immature Gran % Nucleated RBC % Immature Gran # Nucleated RBCs # Immature Plt Fraction D-Dimer, Quantitative Sodium Potassium Chloride Carbon Dioxide Anion Gap BUN Creatinine GFR Calculation BUN/Creatinine Ratio Glucose Calculated Osmolality Calcium Magnesium Total Bilirubin AST ALT Alkaline Phosphatase Total Creatine Kinase CK-MB (CK-2) CK and CKMB Interp Troponin I B-Natriuretic Peptide 66 Total Protein Albumin Globulin Albumin/Globulin Ratio Triglycerides Cholesterol LDL Cholesterol VLDL Cholesterol HDL Cholesterol Heart Disease Risk Ratio Free T4 TSH 3rd Generation Prolactin Urine Color Yellow Urine Appearance Clear Urine pH 5.0 Ur Specific [place] 1.009 Urine Protein 30 Urine Glucose (UA) Negative Urine Ketones 5 Urine Blood Small Urine Nitrate Negative Urine Bilirubin Negative Urine Urobilinogen < 2.0 H Urine Leukocytes Negative Urine RBC 2 Ur Squamous Epith Cells Occasional Hyaline Casts 1 Urine Mucus Occasional Ur Culture Indicated? Not indicated Urine Opiates Screen Negative Ur Barbiturates Screen Negative Ur Phencyclidine Scrn Negative U Amphetamine/Methamph Negative U Benzodiazepines Scrn Negative U Cocaine Metab Screen Negative U Cannabinoids Screen Negative Serum Alcohol 10/09/2907/26/17 07/26/17 20:57 04:18 04:18 WBC RBC Hgb Hct MCV MCH MCHC RDW Plt Count MPV Neut % (Auto) Lymph % (Auto) [place] % (Auto) Eos % (Auto) Baso % (Auto) Neut # (Auto) Lymph # (Auto) [place] # (Auto) Eos # (Auto) Baso # (Auto) Immature Gran % Nucleated RBC % Immature Gran # Nucleated RBCs # Immature Plt Fraction D-Dimer, Quantitative Sodium Potassium Chloride Carbon Dioxide Anion Gap BUN Creatinine GFR Calculation BUN/Creatinine Ratio Glucose Calculated Osmolality Calcium Magnesium Total Bilirubin AST ALT Alkaline Phosphatase Total Creatine Kinase CK-MB (CK-2) CK and CKMB Interp Troponin I 0.098 H D 0.135 H D B-Natriuretic Peptide Total Protein Albumin Globulin Albumin/Globulin Ratio Triglycerides Cholesterol LDL Cholesterol VLDL Cholesterol HDL Cholesterol Heart Disease Risk Ratio Free T4 0.99 TSH 3rd Generation Prolactin Urine Color Urine Appearance Urine pH Ur Specific [place] Urine Protein Urine Glucose (UA) Urine Ketones Urine Blood Urine Nitrate Urine Bilirubin Urine Urobilinogen Urine Leukocytes Urine RBC Ur Squamous Epith Cells Hyaline Casts Urine Mucus Ur Culture Indicated? Urine Opiates Screen Ur Barbiturates Screen Ur Phencyclidine Scrn U Amphetamine/Methamph U Benzodiazepines Scrn U Cocaine Metab Screen U Cannabinoids Screen Serum Alcohol 07/26/17 07/26/17 07/26/17 04:18 04:18 04:18 WBC 8.1 D RBC 4.80 Hgb 15.6 Hct 44.8 MCV 93.3 MCH 33 MCHC 34.8 RDW 12.5 Plt Count 230 MPV 10.9 Neut % (Auto) 68.0 Lymph % (Auto) 20.6 L [place] % (Auto) 7.2 Eos % (Auto) 2.6 Baso % (Auto) 1.1 H Neut # (Auto) 5.5 Lymph # (Auto) 1.7 [place] # (Auto) 0.6 Eos # (Auto) 0.2 Baso # (Auto) 0.1 Immature Gran % 0.5 Nucleated RBC % 0.0 Immature Gran # 0.04 Nucleated RBCs # 0.00 Immature Plt Fraction 0.0 D-Dimer, Quantitative Sodium 143 Potassium 3.5 Chloride 108 H Carbon Dioxide 27 Anion Gap 11.5 BUN 8 Creatinine 0.90 GFR Calculation 114 BUN/Creatinine Ratio 8.00 Glucose 76 Calculated Osmolality 281.0 Calcium 8.5 Magnesium 2.2 Total Bilirubin AST ALT Alkaline Phosphatase Total Creatine Kinase CK-MB (CK-2) CK and CKMB Interp Troponin I B-Natriuretic Peptide 123 H Total Protein Albumin Globulin Albumin/Globulin Ratio Triglycerides 71 Cholesterol 197 LDL Cholesterol 121.0 VLDL Cholesterol 14.2 HDL Cholesterol 68 H Heart Disease Risk Ratio 2.90 Free T4 TSH 3rd Generation 1.490 Prolactin Urine Color Urine Appearance Urine pH Ur Specific [place] Urine Protein Urine Glucose (UA) Urine Ketones Urine Blood Urine Nitrate Urine Bilirubin Urine Urobilinogen Urine Leukocytes Urine RBC Ur Squamous Epith Cells Hyaline Casts Urine Mucus Ur Culture Indicated? Urine Opiates Screen Ur Barbiturates Screen Ur Phencyclidine Scrn U Amphetamine/Methamph U Benzodiazepines Scrn U Cocaine Metab Screen U Cannabinoids Screen Serum Alcohol 07/26/17 07/26/17 07/26/17 08:23 08:25 09:23 WBC RBC Hgb Hct MCV MCH MCHC RDW Plt Count MPV Neut % (Auto) Lymph % (Auto) [place] % (Auto) Eos % (Auto) Baso % (Auto) Neut # (Auto) Lymph # (Auto) [place] # (Auto) Eos # (Auto) Baso # (Auto) Immature Gran % Nucleated RBC % Immature Gran # Nucleated RBCs # Immature Plt Fraction D-Dimer, Quantitative Sodium Potassium Chloride Carbon Dioxide Anion Gap BUN Creatinine GFR Calculation BUN/Creatinine Ratio Glucose Calculated Osmolality Calcium Magnesium Total Bilirubin AST ALT Alkaline Phosphatase Total Creatine Kinase 1865 H CK-MB (CK-2) 16.5 H CK and CKMB Interp 0.9 Troponin I 0.099 H D 0.087 H B-Natriuretic Peptide Total Protein Albumin Globulin Albumin/Globulin Ratio Triglycerides Cholesterol LDL Cholesterol VLDL Cholesterol HDL Cholesterol Heart Disease Risk Ratio Free T4 TSH 3rd Generation Prolactin 8.2 Urine Color Urine Appearance Urine pH Ur Specific [place] Urine Protein Urine Glucose (UA) Urine Ketones Urine Blood Urine Nitrate Urine Bilirubin Urine Urobilinogen Urine Leukocytes Urine RBC Ur Squamous Epith Cells Hyaline Casts Urine Mucus Ur Culture Indicated? Urine Opiates Screen Ur Barbiturates Screen Ur Phencyclidine Scrn U Amphetamine/Methamph U Benzodiazepines Scrn U Cocaine Metab Screen U Cannabinoids Screen Serum Alcohol
[2017-07-26] MEDS: CARVEDILOL 3.125 MG TABLET PO SCH ×2 (11:14→21:10)
[2017-07-26] MEDS: ASPIRIN CHEW 81 MG TABLET PO SCH (11:14)
[2017-07-26] MEDS ORDERED: LABETALOL 20 MG/4 ML SYRINGE IV ONE (14:12)
[2017-07-26] MEDS ORDERED: amLODIPine 5 MG TABLET PO ONE (14:16)
[2017-07-26] MEDS: ENOXAPARIN 40 MG/0.4 ML SYRINGE SUBCUT SCH (17:46)
[2017-07-27] MEDS: SODIUM CHLORIDE 0.9% 1,000 ML IV SCH ×2 (02:01→09:31)
[2017-07-27 04:44] LABS: Calcium 8.2 MG/DL (8.5-10.1); Magnesium 2.1 MG/DL (1.8-2.4); Osmolality,Calculated 281.1 MOS/KG (273-304); Potassium 3.4 MMOL/L (3.5-5.1)
[2017-07-27 04:47] LABS: Troponin I Only 0.047 NG/ML (0.00-0.045)
[2017-07-27 08:01] VITALS: BP 144/106
[2017-07-27] MEDS: PANTOPRAZOLE 40 MG TABLET PO SCH (09:22)
[2017-07-27] MEDS: ASPIRIN CHEW 81 MG TABLET PO SCH (09:22)
[2017-07-27] MEDS: LISINOPRIL/HCTZ 20-12.5 MG TABLET PO SCH (09:22)
[2017-07-27] MEDS: CARVEDILOL 3.125 MG TABLET PO SCH (09:23)
--- NOTE | 2017-07-27 09:53 | Discharge Summary ---
Hospital Course - Hospital Course Hospital Course: Mr. Tyler is a 47 y/o WM who has risk factors significant for: hypertension, tobacco abuse, overweight. He smokes approximately 10 cigarettes daily and has been smoking for many years. He drinks 6-7 16-ounce cans of beer several times per week and has an occasional glass of bourbon. 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 He states his last PCP was in [place] but he has not been there in 6-7 years. 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 He is currently based out of [place] but is staying with friends here at the interim. Mr. Tyler was brought to the emergency room via EMS yesterday evening after a syncopal episode. He tells me that he was helping the elderly female he and friends are staying with clean out her garage when after several hours he began to "feel funny." He thought that he needed to eat something and went inside. He was heating food up in the microwave and had fixed himself a glass of tea when he reports feeling shaky and queasy. He states the next thing he remembers is moss bleacher helping him up off of the floor. He denies loss of bowel or bladder function but does report discovering that his tongue on both sides upon arrival to the hospital. He is unsure exactly how long he was unconscious. His blood pressures on arrival were 169/100 and 189/98. He states he has been out of his blood pressure medication for over 30 days. He tells me that he is usually able to tell when his blood pressure is elevated as his face starts feeling "tight." He reports having that feeling 2-3 times during the last month. The last time he checked his blood pressure it was 113/91. He denies resting or exertional chest pain, heaviness, or tightness but states that he does have some dyspnea on exertion after climbing approximately 530 steel steps for work. Upon arrival, his CT of the head was unremarkable. HIs potassium is 3.5, magnesium 2.2, H&H 15.6 and 44.8. Sodium 143. Creatinine 0.9 with GFR 114. Troponin initially 0.020 with repeats 0.098, 0.135, and 0.099. CKMB 16.5 with CPK 1865. Lipid profile reveals triglycerides 71, cholesterol 197, LDL 121, and HDL 68. EKG shows sinus rhythm with LAD, late transition, and ST-T abnormality. Mr. Tyelr was admitted to the hospital with the above complaints. He was seen in consultation by cardiology who recommended further adjustments of his antihypertensive medications. He experienced no further episodes of syncope. He experienced no chest pain, shortness of breath, or palpitations. With medications of blood pressure decreased to 144/90. On the day of discharge she requested that he be discharged and did not want to pursue any further testing at this time. Diagnosis - Discharge Diagnosis (1) Hypertension Status: Chronic (2) Elevated troponin Status: Acute (3) Syncope and collapse Status: Acute Discharge Plan - Discharge Data Disposition: Disch To Home/Self Care Condition at Discharge: Stable Discharge Diet: advance to your usual diet Activity: resume usual activities as tolerated - Discharge Medications New cloNIDine TAB [Catapres Tab] 0.1 mg PO TID #90 tablet amLODIPine [Norvasc] 10 mg PO DAILY #30 tablet Changed Lisinopril/Hydrochlorothiazide [Lisinopril-Hctz 20-12.5 mg Tab] 1 each PO BID #60 tablet - Follow Up or Referral - Forms/Instructions Exam - Constitutional Vitals: Period Temp Pulse Resp BP Sys/Lynch Pulse Ox Last 24 Hr 96.5 F-99.1 F 61-88 16-20 129-158/80-106 95-99 Discharge Results Labs on day of discharge: Labs from last 24 hours 07/27/17 07/26/17 07/26/17 03:51 09:23 08:23 Sodium 142 Potassium 3.4 L Chloride 107 Carbon Dioxide 27 Anion Gap 11.4 BUN 9 Creatinine 0.70 GFR Calculation 126 BUN/Creatinine Ratio 12.00 Glucose 98 Calculated Osmolality 281.1 Calcium 8.2 L Magnesium 2.1 Troponin I 0.047 H D 0.087 H Prolactin 8.2 DS: Provider Date of admission: 07/25/17 16:50 Primary care physician: . No PCP Attending physician on admission: Jose Walters Consults: 07/25/17 18:11 Consult to Physician [CONS] Routine Comment: Consulting Provider: Cardiology - [facility] Person Notified: aron Date Notified: 07/26/17 Time Notified: 07:40 07/25/17 18:14 Consult to Case Mgmt/Social Srvs [CONS] Routine Reason for Case Mgmt/Social Srvs: Discharge Planning Discharging clinician: Jose Walters
[2017-07-27] MEDS ORDERED: amLODIPine 10 MG TABLET PO SCH (10:00)
--- NOTE | 2017-07-27 14:31 | Cardiology Progress Note ---
Cardiology - PN: Subj Interval history: Cardiology note Telemetry shows steady sinus rhythm. No tachyarrhythmias or pauses. O2 sat 99 on room air Blood pressure 136/90 Decreased breath sounds but clear Regular rhythm no gallop Plan Agree with discharge Medications as outlined. I did encourage the patient to take his medication daily not to miss doses He will follow-up in [facility] with his local doctor in 2 weeks Exam (Progress Note) - Constitutional Vitals: Period Temp Pulse Resp BP Sys/Lynch Pulse Ox Last 24 Hr 96.5 F-98.6 F 61-76 16-20 129-144/80-106 95-99 Result/EKG - Labs CBC & BMP: 07/26/17 04:18 07/27/17 03:51 Labs: Laboratory Results - last 24 hr 07/27/17 03:51 Sodium 142 Potassium 3.4 L Chloride 107 Carbon Dioxide 27 Anion Gap 11.4 BUN 9 Creatinine 0.70 GFR Calculation 126 BUN/Creatinine Ratio 12.00 Glucose 98 Calculated Osmolality 281.1 Calcium 8.2 L Magnesium 2.1 Troponin I 0.047 H D Specialty Discharge - Follow Up or Referrals
--- NOTE | 2017-07-27 14:46 | Order Completion Report ---
See report scanned to EMR
[2017-07-27] MEDS ORDERED: cloNIDine 0.1 MG TABLET PO SCH (15:00)
== END 2017-07-27 12:30 | disposition home or self-care (01) | DRG 312 ==
LOC: N.ED 13:26 → N.EDINP 16:50 → N.TELEN 18:30